=== PATIENT | female | born 1950 | race Caucasian/White ===

== ENCOUNTER 2020-11-27 09:39 | Outpatient (CLI) | payer MEDICARE, SELFPAY ==
--- NOTE | 2020-11-27 09:50 | FL_ITS ---
WS: [id number] Barium swallow and esophagram, upper GI series with air, 11/27/2020 Clinical Data: HIATAL HERNIA Comparison: None. Fluoroscopy time: 1.5 minutes. Findings: The patient swallowed the thick and thin barium, and it flowed through the hypopharynx without hesita tion. No stricture, mass, polyp or erosion was seen. There are clips in the right upper quadrant from the gastric bypass surgery. The barium passed into the esophagus and there was poor motility through out. There is minimal narrowing at the gastroesophageal junction but no definite hiatal hernia. There was reflux from the gastroesophageal junction to the thoracic inlet. No erosion, polyp, mass or fist mark was seen. The barium passed into a small stomach remnant and then there is a Carmella-en-Y with the jejunum connect ed to the stomach remnant. The stomach remnant showed no erosion, polyp, mass or ulcer. The small bow el filled quickly. The jejunum and ileum showed no abnormalities. FL/FL upper GI w air* [id number] Impression: 1. Poor esophageal motility. 2. Negative for hiatal hernia but there is narrowing at the gastroesophageal ju nction and reflux from the gastroesophageal junction to the thoracic inlet. 3. Small stomach remnant which connects to the jejunum. 4. No evidence of obstruction or narrowing at the gastrojejunal junction and t he small bowel fills promptly.
== END 2020-11-27 09:40 | disposition home or self-care (01) ==
PROVIDERS: Visit Provider Nurse Practitioner Family
DX: K44.9 Diaphragmatic hernia without obstruction or gangrene (principal)
CPT/HCPCS: 74246

== ENCOUNTER 2021-01-11 12:54 | Outpatient (CLI) | payer MEDICARE, SELFPAY ==
--- NOTE | 2021-01-11 | CT_ITS ---
WS: [id number] CT ABDOMEN CONTRAST TECHNIQUE: Contrast enhanced CT of the abdomen with coronal and sagittal reformatted images. CLINICAL INFORMATION: HERNIA COMPARISON: None. DLP: 607.[address] scans at [facility] use at least one of these dose optimization techniques: automated e xposure control; mA and/or kV adjustment per patient size (includes targeted exams where dose is matc hed to clinical indication); or iterative reconstruction. FINDINGS: Mild diffuse fatty infiltration of the liver. Enlarged right hepatic lobe. Normal portal vein and spl enic vein. Prior cholecystectomy. Normal GE junction. Lung bases are well aerated. Gastric rugal thic kening with enhancement extending into the duodenum. Duodenal mucosal thickening and enhancement. Fin dings consistent with gastroduodenitis. Normal spleen. Fatty atrophy of the pancreas. Adrenal glands are normal. Normal renal parenchymal enhancement. No hy dronephrosis. Additional small bowel postoperative changes in the midabdomen. Surgical clips in the m idabdomen anteriorly. Normal caliber abdominal aorta. Aortic calcification. CT/CT abdomen w con* [id number] IMPRESSION: 1. Mild diffuse fatty infiltration of the liver. 2. Evidence of gastroduodenitis described above 3. Cholecystectomy clips. 4. Prior postoperative changes GE junction and mid abdomen small bowel. 5. No hydronephrosis in either kidney. 6. Normal caliber abdominal aorta.
[2021-01-11] MEDS: iohexol 300 mg/mL 50 mL Btl PO (13:23)
[2021-01-11] MEDS: iohexol 300 mg/mL 100 mL Btl IV (13:23)
== END 2021-01-11 12:55 | disposition home or self-care (01) ==
PROVIDERS: PCP Nurse Practitioner Family; Visit Provider Nurse Practitioner Family
DX: K46.9 Unspecified abdominal hernia without obstruction or gangrene (principal); K76.0 Fatty (change of) liver, not elsewhere classified; Z90.49 Acquired absence of other specified parts of digestive tract
CPT/HCPCS: 74160; Q9967